=== PATIENT | female | born 1975 ===

== ENCOUNTER 2025-03-05 13:32 | Outpatient (CLI) | payer OTHER | END 2025-03-05 13:39 | disposition home or self-care (01) | LOC: SONOGRAMA 13:32 | PROVIDERS: ATTEND Physical Medicine & Rehabilitation Hospice and Palliative Medicine | DX: M25.511 Pain in right shoulder (principal); M75.51 Bursitis of right shoulder; M75.31 Calcific tendinitis of right shoulder; M75.41 Impingement syndrome of right shoulder ==